=== PATIENT | male | born 1955 | race Caucasian/White ===

== ENCOUNTER → 2016-05-12 | Outpatient (CLI) | payer OTHER ==
--- NOTE | 2016-05-12 17:24 | DX ---
PA and lateral chest History: Chest pain. Comparison: None available. Findings: There is mild peribronchial thickening without focal consolidation. There is no pneumothora x or pleural effusion. The heart and pulmonary vasculature are normal. Mild rightward curvature of th e midthoracic spine is present. Mild anterior height reduction at T12 is noted. Impression: 1. Mild peribronchial thickening suggesting airways disease/bronchitis. 2. Anterior height reduction at T12, possibly congenital or posttraumatic (age-indeterminate).
== END ==
LOC: FIMAGING 10:53
PROVIDERS: ATTEND Radiology Diagnostic Radiology
DX: R07.9 Chest pain, unspecified (principal)